=== PATIENT | female | born 1930 | race Caucasian/White ===

== ENCOUNTER 2016-09-03 13:54 | Observation (INO) | payer MEDICARE ==
[2016-09-03] VITALS (7 sets, daily range): BP systolic 142–195; BP diastolic 75–85; PULSE 60–71; RESP 16–18; TEMP 97.7–97.9; O2SAT 97–100
[~2016-09-03] VITALS: Ht 165.1 cm; Wt 47.1 kg
--- NOTE | 2016-09-03 14:25 | RADRPT ---
EXAM DATE/TIME: 09/03/2016 14:26 [facility] COMPARISON: No previous studies available for comparison. INDICATIONS : Fall, complains of pain and swelling of right wrist. MEDICAL HISTORY : None. SURGICAL HISTORY : None. ENCOUNTER: Initial ACUITY: 1 day PAIN SCORE: 6/10 LOCATION: Right wrist FINDINGS: Bony structures are extremely osteopenic with a fracture of distal radius and slight impaction of the metaphysis into the epiphysis. There is minimal displacement dorsally. 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 CONCLUSION: Distal radial fracture. Apurva Hoang MD on September 03, 2016 at 14:23 Board Certified Radiologist. This report was verified electronically.
--- NOTE | 2016-09-03 14:26 | RADRPT ---
EXAM DATE/TIME: 09/03/2016 14:26 [facility] COMPARISON: No previous studies available for comparison. INDICATIONS : Fall, complains of pain and swelling of left wrist. MEDICAL HISTORY : None. SURGICAL HISTORY : None. ENCOUNTER: Initial ACUITY: 1 day PAIN SCORE: 6/10 LOCATION: Left wrist FINDINGS: Bony structures are extremely osteopenic with a fracture of distal radius and slight dorsal displacem ent. 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 CONCLUSION: Distal radial fracture. Apurva Hoang MD on September 03, 2016 at 14:24 Board Certified Radiologist. This report was verified electronically.
[2016-09-03] MEDS ORDERED: MULT-69 PO (14:51)
--- NOTE | 2016-09-03 15:12 | PD ---
HPI Chief Complaint: Injury Time Seen by Provider: 15:06 Travel History International Travel<30 days: No Contact w/Intl Traveler<30days: No Traveled to known affect area: No History of Present Illness HPI Patient is an 86-year-old female presenting to emergency evaluation of bilateral wrist pain. Patient states she was outside watering her hanging plant when she saw [employer] and tried to hit it with a broom subsequently losing her balance and falling back onto her wrists and buttocks. She braced her fall with her hands. She denies any back pain, leg pain, neck pain, she did bump her head on her car door but she states it was a gentle bump. She denied any chest pain, dizziness prior to the fall. She has no significant past medical history or surgical history. She is only on vitamins daily. [facility] Past Medical History Medical History: Denies Significant Hx Diminished Hearing: No Tetanus Vaccination: > 5 Years Influenza Vaccination: No ?: Not Menopausal: Yes : 0 Past Surgical History Surgical History: No Previous Surgery Social History Alcohol Use: Yes (GLASS OF WINE ) Tobacco Use: No (QUIT ) Substance Use: No (PT DENIES ) Allergies-Medications (Allergen,Severity, Reaction): Coded Allergies: Sulfa (Verified Allergy, Intermediate, SWELLING, 09/03/16) Codeine (Verified Adverse Reaction, Unknown, HALLUCINATIONS , 09/03/16) Reported Meds & Prescriptions Reported Meds & Active Scripts Active Reported [facility] Women's Tab (Multivit-Min/Iron/Folic/Lutein) 1 Each Tablet 1 Tab PO DAILY Review of Systems Except as stated in HPI: all other systems reviewed are Neg Musculoskeletal: Positive: Myalgias, Limited ROM, Edema, Pain Skin: Positive Change in Pigmentation Physical Exam Narrative GENERAL: Well-developed, well-nourished, alert elderly female. Resting in no acute distress. SKIN: Warm and dry. HEAD: Atraumatic. Normocephalic. EYES: Pupils equal and round. No scleral icterus. No injection or drainage. ENT: No nasal bleeding or discharge. Mucous membranes pink and moist. NECK: Trachea midline. No JVD. CARDIOVASCULAR: Regular rate and rhythm. RESPIRATORY: No accessory muscle use. Clear to auscultation. Breath sounds equal bilaterally. GASTROINTESTINAL: Abdomen soft, non-tender, nondistended. Hepatic and splenic margins not palpable. MUSCULOSKELETAL: Right upper extremity from the mid forearm just distal to the wrist is edematous, ecchymosis noted. 2+ positive radial pulses bilaterally, brisk less than 3 second capillary refill. Left upper extremity has mild edema noted over the wrist. NEUROLOGICAL: Awake and alert. No obvious cranial nerve deficits. Motor grossly within normal limits. Five out of 5 muscle strength in the arms and legs. Normal speech. PSYCHIATRIC: Appropriate mood and affect; insight and judgment normal. Data Data Last Documented VS Vital Signs Date Time Temp Pulse Resp B/P Pulse Ox O2 Delivery O2 Flow Rate FiO2 09/03/16 15:30 97.8 67 16 153/81 99 Room Air Orders Wrist, Complete ([id number]) (09/03/16 ) Wrist, Complete ([id number]) (09/03/16 ) Complete Blood Count With Diff (09/03/16 14:55) Comprehensive Metabolic Panel (09/03/16 14:55) Prothrombin Time / Inr (Pt) (09/03/16 14:55) Act Partial Throm Time (Ptt) (09/03/16 14:55) Urinalysis - C+S If Indicated (09/03/16 14:55) Magnesium (Mg) (09/03/16 14:55) Iv Access Insert/Monitor (09/03/16 14:55) Ecg Monitoring (09/03/16 14:55) Oximetry (09/03/16 14:55) Vital Signs (09/03/16 14:55) Blood Glucose (09/03/16 14:55) Splinting (09/03/16 ) Splinting (09/03/16 ) Fiberglass Sugartong Sp Ad Arm (09/03/16 ) Fiberglass Sugartong Sp Ad Arm (09/03/16 ) Sling Cradle Arm (09/03/16 ) Sling Cradle Arm (09/03/16 ) Admit Order (Ed Use Only) (09/03/16 16:54) Labs Laboratory Tests Test 09/03/16 09/03/16 15:00 15:25 White Blood Count 10.3 TH/MM3 Red Blood Count 4.09 MIL/MM3 Hemoglobin 12.9 GM/DL Hematocrit 38.8 % Mean Corpuscular Volume 94.7 FL Mean Corpuscular Hemoglobin 31.4 PG Mean Corpuscular Hemoglobin 33.2 % Concent Red Cell Distribution Width 13.9 % Platelet Count 157 TH/MM3 Mean Platelet Volume 8.5 FL Neutrophils (%) (Auto) 61.8 % Lymphocytes (%) (Auto) 10.8 % Monocytes (%) (Auto) 3.4 % Eosinophils (%) (Auto) 23.7 % Basophils (%) (Auto) 0.3 % Neutrophils # (Auto) 6.4 TH/MM3 Lymphocytes # (Auto) 1.1 TH/MM3 Monocytes # (Auto) 0.3 TH/MM3 Eosinophils # (Auto) 2.4 TH/MM3 Basophils # (Auto) 0.0 TH/MM3 CBC Comment DIFF FINAL Differential Comment Prothrombin Time 13.0 SEC Prothromb Time International 1.2 RATIO Ratio Activated Partial 25.4 SEC Thromboplast Time Sodium Level 131 MEQ/L Potassium Level 4.4 MEQ/L Chloride Level 94 MEQ/L Carbon Dioxide Level 25.7 MEQ/L Anion Gap 11 MEQ/L Blood Urea Nitrogen 12 MG/DL Creatinine 0.91 MG/DL Estimat Glomerular Filtration 58 ML/MIN Rate Random Glucose 104 MG/DL Calcium Level 9.1 MG/DL Magnesium Level 1.9 MG/DL Total Bilirubin 0.9 MG/DL Aspartate Amino Transf 36 U/L (AST/SGOT) Alanine Aminotransferase 21 U/L (ALT/SGPT) Alkaline Phosphatase 84 U/L Total Protein 7.2 GM/DL Albumin 4.0 GM/DL [facility] Medical Decision Making Medical Screen Exam Complete: Yes Emergency Medical Condition: Yes Interpretation(s) Last Impressions Wrist X-Ray 09/03/16 0000 Signed Impressions: Service Date/Time: Saturday, September 03, 2016 14:26 - CONCLUSION: Distal radial fracture. Apurva Hoang MD Wrist X-Ray 09/03/16 0000 Signed Impressions: Service Date/Time: Saturday, September 03, 2016 14:26 - CONCLUSION: Distal radial fracture. Apurva Hoang MD Vital Signs Date Time Temp Pulse Resp B/P Pulse Ox O2 Delivery O2 Flow Rate FiO2 09/03/16 13:56 97.8 62 17 195/85 97 Room Air Differential Diagnosis Fracture versus dislocation versus sprain versus strain versus other Narrative Course Patient is a 86-year-old well-appearing female, she has no significant past medical history presenting with bilateral wrist pain after falling onto an outstretched hand. She is neurologically intact and vascularly intact. Imaging shows a left distal radius fracture with slight dorsal displacement. The right wrist x-ray shows a fracture of the distal radius and slight impaction of the metaphysis and epiphysis, there is minimal displacement dorsally. Superimposed osteoarthritis is pain on both wrists. IV access established, labs ordered. [employer] paged for splinting. Orthopedic surgeon paged for recommendations Dr. Sue reviewed images, stated to place in splints and follow up in office in 1-2 weeks. Pt placed in bilateral sugar tong splints and slings. Patient initially wanted to be discharged home, after she was splinted she realized that she was unable to care for herself. Patient then agreed to be admitted for placement in a rehabilitation facility. Discussed with case management, patient will be admitted under observation. Case management stated the patient did not need a [address] Forman accepted admission. Diagnosis Primary Impression: Distal radius fracture, left Qualified Code: S52.592A - Other closed fracture of distal end of left radius , initial encounter Additional Impressions: Distal radius fracture, right Qualified Code: S52.591A - Other closed fracture of distal end of right radius , initial encounter Alteration in self-care ability Admitting Information Admitting Physician Requests: Observation Condition: Stable Kaitlynn Cristobal Sep 03, 2016 15:12
[2016-09-03 15:52] LABS: AUTOMATED NEUTROPHIL # 6.4 TH/MM3 (1.8-7.7); BASOPHIL % 0.3 % (0.0-2.0); EOSINOPHIL # 2.4 TH/MM3 (0-0.4); EOSINOPHIL % 23.7 % (0.0-4.0); HEMATOCRIT 38.8 % (35.0-46.0); HEMO FLAGS DIFF FINAL; LYMPH % 10.8 % (9.0-44.0); LYMPHOCYTE # 1.1 TH/MM3 (1.0-4.8); MEAN CELL VOLUME 94.7 FL (80.0-100.0); MEAN CORPUSCULAR HEMOGLOBIN 31.4 PG (27.0-34.0); MEAN CORPUSCULAR HGB CONC 33.2 % (32.0-36.0); MONO % 3.4 % (0.0-8.0); NEUT % 61.8 % (16.0-70.0); PLATELET COUNT 157 TH/MM3 (150-450); RED BLOOD COUNT 4.09 MIL/MM3 (4.00-5.30); RED CELL DISTRIBUTION WIDTH 13.9 % (11.6-17.2); WHITE BLOOD COUNT 10.3 TH/MM3 (4.0-11.0)
[2016-09-03 16:03] LABS: APTT (PATIENT) 25.4 SEC (24.3-30.1); INTERNATIONAL NORMALIZED RATIO 1.2 RATIO
[2016-09-03 16:08] LABS: ALKALINE PHOSPHATASE 84 U/L (45-117); TOTAL BILIRUBIN ADULT 0.9 MG/DL (0.2-1.0)
[2016-09-03 16:13] LABS: ALT (GPT) 21 U/L (10-53); ANION GAP 11 MEQ/L (5-15); AST (GOT) 36 U/L (15-37); BICARBONATE 25.7 MEQ/L (21.0-32.0); BLOOD UREA NITROGEN 12 MG/DL (7-18); CHLORIDE 94 MEQ/L (98-107); GLOMERULAR FILTRATION RATE 58 ML/MIN (>89); MAGNESIUM 1.9 MG/DL (1.5-2.5); POTASSIUM 4.4 MEQ/L (3.5-5.1); SODIUM (NA) 131 MEQ/L (136-145)
[2016-09-03] MEDS ORDERED: LACTULOSE SYRUP 20 GM/30 ML CUP PO PRN (17:30)
[2016-09-03] MEDS ORDERED: ACETAMINOPHEN 325 MG TAB PO PRN (17:30)
[2016-09-03] MEDS ORDERED: ONDANSETRON HCL 4 MG/2 ML VIAL IVP PRN (17:30)
[2016-09-03] MEDS ORDERED: traMADol HCL 50 MG TAB PO PRN (17:30)
[2016-09-03] MEDS ORDERED: SENNOSIDES 8.6 MG TAB PO PRN (17:30)
[2016-09-03] MEDS ORDERED: MAGNESIUM HYDROXIDE SUSP 30 ML CUP PO PRN (17:30)
[2016-09-03] MEDS ORDERED: BISACODYL 10 MG SUPP RECTAL PRN (17:30)
--- NOTE | 2016-09-03 17:32 | HHI.HP ---
HPI Service [facility] Primary Care Physician No Primary Care Physician Admission Diagnosis BILATERAL WRIST FRACTURES Diagnoses: Chief Complaint: Wrist fractures Travel History International Travel<30 Days: No Contact w/Intl Traveler <30 Da: No Traveled to Known Affected Are: No History of Present Illness 86-year-old female with no significant past medical history who presented after a fall. The patient states that she was in the driveway today and tried to hit a gecko with a broom, lost her balance, and fell backwards onto her wrists. She landed on both of her wrists and had pain in both of them. She describes the pain as a warm sensation. Pain is reasonably controlled when she is not moving them, but does hurt worse with activity. When she fell, she denies any hitting her head or any other trauma. She was found to have bilateral radial fractures in the ED. Orthopedics was consulted and recommended to place in bilateral splints and follow-up as outpatient. With wrists in bilateral splints , the patient was asked to be admitted for placement issue will likely be unable to perform ADLs at home. Review of Systems Except as stated in HPI: all other systems reviewed are Neg Past Family Social History Past Medical History None Past Surgical History None Reported Medications Reported [facility] Women's Tab (Multivit-Min/Iron/Folic/Lutein) 1 Each Tablet 1 Tab PO DAILY Allergies: Coded Allergies: Sulfa (Verified Allergy, Intermediate, SWELLING, 09/03/16) Codeine (Verified Adverse Reaction, Unknown, HALLUCINATIONS , 09/03/16) Active Ordered Medications Current Medications Medications (Trade) Dose Ordered Sig/Xu Route Start Time Stop Time Status Last Admin (NS Flush) 2 ml BID IV FLUSH 09/03/16 21:00 UNV Family History Mother had CVA Social History Has a glass of wine rarely Denies any tobacco use Lives at home by herself and does not use any assistive devices for ambulation Physical Exam Vital Signs Vital Signs Date Time Temp Pulse Resp B/P Pulse Ox O2 Delivery O2 Flow Rate FiO2 09/03/16 15:30 97.8 67 16 153/81 99 Room Air 09/03/16 15:14 97.8 69 16 153/81 100 Room Air 09/03/16 15:14 16 100 Room Air 09/03/16 14:55 69 16 100 Room Air 09/03/16 13:56 97.8 62 17 195/85 97 Room Air Physical Exam GENERAL: Well-developed well-nourished. In no acute distress. SKIN: Warm and dry. No lesions noted. HEENT: Normocephalic. Pupils equal and round. Mucous membranes pink and moist. CARDIOVASCULAR: Regular rate and rhythm. No murmur appreciated. RESPIRATORY: No accessory muscle use. Clear to auscultation. Breath sounds equal bilaterally. GASTROINTESTINAL: Abdomen soft, non-tender, nondistended. Bowel sounds x4. MUSCULOSKELETAL: Bilateral forearms in splints. Good capillary refill and range of motion of the fingers in both of her hands. No clubbing or cyanosis. No edema. NEUROLOGICAL: Awake and alert. No focal neurological deficits. Moves upper and lower extremities spontaneously. Normal speech. PSYCHIATRIC: Appropriate mood and affect; insight and judgment normal. Laboratory Laboratory Tests Test 09/03/16 09/03/16 15:00 15:25 White Blood Count 10.3 Red Blood Count 4.09 Hemoglobin 12.9 Hematocrit 38.8 Mean Corpuscular Volume 94.7 Mean Corpuscular Hemoglobin 31.4 Mean Corpuscular Hemoglobin 33.2 Concent Red Cell Distribution Width 13.9 Platelet Count 157 Mean Platelet Volume 8.5 Neutrophils (%) (Auto) 61.8 Lymphocytes (%) (Auto) 10.8 Monocytes (%) (Auto) 3.4 Eosinophils (%) (Auto) 23.7 Basophils (%) (Auto) 0.3 Neutrophils # (Auto) 6.4 Lymphocytes # (Auto) 1.1 Monocytes # (Auto) 0.3 Eosinophils # (Auto) 2.4 Basophils # (Auto) 0.0 CBC Comment DIFF FINAL Differential Comment Prothrombin Time 13.0 Prothromb Time International 1.2 Ratio Activated Partial 25.4 Thromboplast Time Sodium Level 131 Potassium Level 4.4 Chloride Level 94 Carbon Dioxide Level 25.7 Anion Gap 11 Blood Urea Nitrogen 12 Creatinine 0.91 Estimat Glomerular Filtration 58 Rate Random Glucose 104 Calcium Level 9.1 Magnesium Level 1.9 Total Bilirubin 0.9 Aspartate Amino Transf 36 (AST/SGOT) Alanine Aminotransferase 21 (ALT/SGPT) Alkaline Phosphatase 84 Total Protein 7.2 Albumin 4.0 Result Diagram: 09/03/16 1500 09/03/16 1525 Imaging Last Impressions Wrist X-Ray 09/03/16 0000 Signed Impressions: Service Date/Time: Saturday, September 03, 2016 14:26 - CONCLUSION: Distal radial fracture. Apurva Hoang MD Assessment and Plan Assessment and Plan 86-year-old female with no significant past medical history who presented after a fall Bilateral radial fractures: Images personally reviewed. Orthopedics was contacted in the ED and recommended conservative management with splinting and outpatient follow-up with them for repeat imaging. Pain control with Tylenol and tramadol. Impaired activities of daily living: With both arms in sugar tong splints, the patient no longer has the ability to bend at her elbows. This is concerning as the patient will likely not be able to feed herself or maintain personal hygiene. Given this and her advanced age, will likely need placement while fractures case management consulted. PT/OT consultation. Supportive care. DVT prophylaxis: SCDs Discussed Condition With Patient with friend at bedside, ED SENIOR DESIGN ENGINEER Attending Statement Attestation Patient seen and examined with Bismark Lovell PA-C. The exam, history, and the medical decision-making described in the above note were completed with the assistance of the dictating practitioner. I attest that I had a [id number] encounter with the patient on the same day, and personally performed all of the history, exam, or medical decision making. Discussed case with him thoroughly after seeing the patient, reviewed and agreed with the plan. Please see addendum in History, Physical examination and Plan. See below for any errata/ additional input: This is an 86-year-old female with no significant past medical history presented with a fall, was found after evaluation to have had bilateral radial fractures. Pain is mild, only with movement, described as tingling. Patient did not hit her head. Not in distress Regular rate and rhythm Clear breath sounds Bilateral forearm in splints Alert awake and oriented, no focal deficits. Bilateral radial fracture-per orthopedics, neurosurgery, keep bilateral splint. Positive impaired activities of daily living, will need 24-hour hour supervision, if cannot be done at home, patient would need rehabilitation. Pain control with Tylenol and tramadol. Consult PT and case management. Bismark Lovell Sep 03, 2016 17:32 Vadim Forman MD Sep 03, 2016 18:20
[2016-09-03] MEDS: DOCUSATE SODIUM 50 MG/SENNA 8.6 MG TAB PO SCH (20:22)
[2016-09-03] MEDS: ENOXAPARIN SODIUM 40 MG/0.4 ML SYRINGE SQ SCH (20:22)
[2016-09-03] MEDS: SODIUM CHLORIDE 0.9% FLUSH 10 ML FLUSH IV FLUSH SCH (20:54)
[2016-09-03 23:04] LABS: BLOOD, URINE NEG (NEG); COMMENT (UR) CULT NOT INDICATED; CULTURE IF INDICATED CULT NOT INDICATED; GLUCOSE,URINE NEG (NEG); KETONE, URINE NEG (NEG); NITRITE,URINE NEG (NEG); URINE COLOR YELLOW (YELLW/STRAW)
[2016-09-03] MEDS: ACETAMINOPHEN 325 MG TAB PO PRN (23:38)
[2016-09-04] VITALS (7 sets, daily range): BP systolic 151–192; BP diastolic 66–87; PULSE 52–63; RESP 17–18; TEMP 95.9–97.8; O2SAT 96–98
[2016-09-04] MEDS: MULTIVITAMIN TAB PO SCH (09:00)
[2016-09-04] MEDS: DOCUSATE SODIUM 50 MG/SENNA 8.6 MG TAB PO SCH ×2 (09:00→19:58)
[2016-09-04] MEDS: SODIUM CHLORIDE 0.9% FLUSH 10 ML FLUSH IV FLUSH SCH ×2 (09:00→19:58)
[2016-09-04] MEDS ORDERED: SENN1TAB PO (09:41)
[2016-09-04] MEDS ORDERED: ACET1TAB86 PO (09:41)
[2016-09-04] MEDS ORDERED: ULTR50TA5 PO (09:41)
--- NOTE | 2016-09-04 13:36 | HHI.PR ---
Subjective Remarks Follow-up for bilateral radial fracture No overnight events, no headache. Pain is controlled with Tylenol. No nausea or vomiting. Agreed to go to rehabilitation since she cannot arrange for 13/09 care at home Objective Vitals Vital Signs Date Time Temp Pulse Resp B/P Pulse Ox O2 Delivery O2 Flow Rate FiO2 09/04/16 08:00 96.0 58 17 166/79 98 09/04/16 04:00 97.8 54 17 160/66 96 09/03/16 22:35 97.7 60 16 164/75 97 09/03/16 19:44 98 09/03/16 19:19 64 18 142/76 98 Room Air 09/03/16 17:32 97.9 71 16 148/82 99 Room Air 09/03/16 15:30 97.8 67 16 153/81 99 Room Air 09/03/16 15:14 97.8 69 16 153/81 100 Room Air 09/03/16 15:14 16 100 Room Air 09/03/16 14:55 69 16 100 Room Air 09/03/16 13:56 97.8 62 17 195/85 97 Room Air I/O 09/03/16 09/03/16 09/03/16 09/04/16 09/04/16 09/04/16 06:59 14:59 22:59 06:59 14:59 22:59 Intake Total 200 ml 240 ml Balance 200 ml 240 ml Intake Oral 200 ml 240 ml # Voids 2 # Bowel Movements 0 Result Diagram: 09/03/16 1500 09/03/16 1525 Objective Remarks Not in distress Regular rate and rhythm Clear breath sounds Bilateral forearm in splints Alert awake and oriented, no focal deficits. A/P Problem List: (1) Distal radius fracture, right ICD Code: S52.501A Status: Acute (2) Distal radius fracture, left ICD Code: S52.502A Status: Acute Assessment and Plan 86-year-old female with no significant past medical history who presented after a fall Bilateral radial fractures: Images personally reviewed. Orthopedics was contacted in the ED and recommended conservative management with splinting and outpatient follow-up with them for repeat imaging. Pain control with Tylenol and tramadol. Impaired activities of daily living: With both arms in sugar tong splints, the patient no longer has the ability to bend at her elbows. This is concerning as the patient will likely not be able to feed herself or maintain personal hygiene. Given this and her advanced age, she agreed to go to rehabilitation. Physical therapy following, consult case management for SNF placement. Upon discharge, she needs a primary care physician, my recommendation is Dr. [place] Discharge Planning Discharge once arrangements made. Problem Qualifiers (1) Distal radius fracture, right: Qualified Code: S52.591A - Other closed fracture of distal end of right radius , initial encounter (2) Distal radius fracture, left: Qualified Code: S52.592A - Other closed fracture of distal end of left radius, initial encounter Vadim Forman MD Sep 04, 2016 13:36
[2016-09-04] MEDS: ACETAMINOPHEN 325 MG TAB PO PRN (17:32)
[2016-09-04] MEDS ORDERED: ENALAPRILAT 1.25 MG/ML VIAL IV PRN (19:30)
[2016-09-04] MEDS ORDERED: amLODIPine BESYLATE 5 MG TAB PO ONE (19:30)
[2016-09-04] MEDS: ENOXAPARIN SODIUM 40 MG/0.4 ML SYRINGE SQ SCH (19:57)
[2016-09-05] VITALS (7 sets, daily range): BP systolic 121–189; BP diastolic 66–90; PULSE 50–86; RESP 16–18; TEMP 95.6–98.6; O2SAT 92–99
[2016-09-05] MEDS: amLODIPine BESYLATE 5 MG TAB PO SCH (08:47)
[2016-09-05] MEDS: MULTIVITAMIN TAB PO SCH (08:47)
[2016-09-05] MEDS: DOCUSATE SODIUM 50 MG/SENNA 8.6 MG TAB PO SCH ×2 (08:50→20:58)
[2016-09-05] MEDS: SODIUM CHLORIDE 0.9% FLUSH 10 ML FLUSH IV FLUSH SCH ×2 (08:50→20:57)
--- NOTE | 2016-09-05 10:03 | HHI.PR ---
Subjective Remarks Follow-up on patient with bilateral radial wrist fractures. Patient seen and examined today. Patient reports disorientation and confusion last night after taking Tramadol. Resolved. Patient denies any complaints at present. She denies any bilateral wrist pain just some mild discomfort. Reports intact sensation in all of the digits of both hands. She is considering several rehabilitation facilities depending on insurance average. She denies any acute medical complaints. No dizziness or headache. No chest pain, shortness of breath or abdominal pain. Objective Vitals Vital Signs Date Time Temp Pulse Resp B/P Pulse Ox O2 Delivery O2 Flow Rate FiO2 09/05/16 05:37 149/78 09/05/16 04:00 95.6 61 16 178/83 97 09/05/16 01:16 Room Air 09/05/16 01:00 18 09/05/16 00:00 95.6 64 18 189/79 97 09/04/16 21:00 151/73 09/04/16 20:32 21 09/04/16 20:00 97.2 63 18 180/87 97 09/04/16 18:00 182/82 09/04/16 16:00 96.5 57 18 192/81 98 09/04/16 12:00 95.9 52 18 170/72 96 I/O 09/04/16 09/04/16 09/04/16 09/05/16 09/05/16 09/05/16 07:00 15:00 23:00 07:00 15:00 23:00 Intake Total 240 ml 840 ml 120 ml Balance 240 ml 840 ml 120 ml Intake Oral 240 ml 840 ml 120 ml # Voids 2 4 3 # Bowel Movements 1 0 Result Diagram: 09/03/16 1500 09/03/16 1525 Imaging Last Impressions Wrist X-Ray 09/03/16 0000 Signed Impressions: Service Date/Time: Saturday, September 03, 2016 14:26 - CONCLUSION: Distal radial fracture. Apurva Hoang MD Objective Remarks GENERAL: Well-nourished, well-developed elderly patient in NAD. A*Ox3. Pleasant and talkative. SKIN: Warm and dry. No rash. HEENT: Normocephalic. Atraumatic. EOMI. MMM. CARDIOVASCULAR: Regular rate and rhythm. S1, S2 noted. No murmur appreciated. RESPIRATORY: No accessory muscle use. Clear to auscultation. Breath sounds equal bilaterally. GASTROINTESTINAL: Abdomen soft, non-tender, nondistended. Normoactive bowel sounds x4. MUSCULOSKELETAL: Bilateral forearms in splints. Able to move all digits of both hands. Sensation grossly intact. (+)Ecchymosis and edema noted in the fingers of the right hand. PSYCHIATRIC: Appropriate mood and affect; insight and judgment normal. Medications and IVs Current Medications Medications (Trade) Dose Ordered Sig/Xu Route Start Time Stop Time Status Last Admin (NS Flush) 2 ml BID IV FLUSH 09/03/16 21:00 09/05/16 08:50 (Theragran) 1 tab DAILY PO 09/04/16 09:00 09/05/16 08:47 (Tylenol) 650 mg Q4H PRN PO 09/03/16 17:30 (Zofran Inj) 4 mg Q6H PRN IVP 09/03/16 17:30 (Lovenox Inj) 40 mg Q24H SQ 09/03/16 20:00 09/04/16 19:57 (Tylenol) 650 mg Q6H PRN PO 09/03/16 17:30 09/04/16 17:32 (Brinda-Colace) 1 tab BID PO 09/03/16 21:00 09/03/16 20:22 (Milk Of Magnesia Liq) 30 ml Q12H PRN PO 09/03/16 17:30 (Senokot) 17.2 mg Q12H PRN PO 09/03/16 17:30 (Dulcolax Supp) 10 mg DAILY PRN RECTAL 09/03/16 17:30 (Lactulose Liq) 30 ml DAILY PRN PO 09/03/16 17:30 (Ultram) 50 mg Q8H PRN PO 09/03/16 17:30 09/04/16 23:59 (Norvasc) 5 mg DAILY PO 09/05/16 09:00 09/05/16 08:47 (Vasotec Inj) 1.25 mg Q6H PRN IV 09/04/16 19:30 A/P Problem List: (1) Distal radius fracture, right ICD Code: S52.501A Status: Acute (2) Distal radius fracture, left ICD Code: S52.502A Status: Acute Assessment and Plan 86-year-old female with no significant past medical history who presented after a fall sustaining bilateral radial fractures. 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 Episode of disorientation and confusion last night (likely ) possibly attributable to tramadol use. Discontinue Tramadol. Continue pain control with Tylenol. Obtain Vitamin D level Patient will need to follow up as outpatient for DEXA scan Impaired activities of daily living With both arms in sugar tong splints, the patient no longer has the ability to bend at her elbows. This is concerning as the patient will likely not be able to feed herself or maintain personal hygiene. Given this and her advanced age, she agreed to go to rehabilitation. She is no one at home to help care for her. Case management consulted - attempting to obtain insurance authorization for SNF placement Continue participation with physical therapy Elevated BP Patient denies any history of hypertension Likely situational Started on Norvasc 5 mg daily Continue to monitor BP and adjust treatment as indicated Hyponatremia mild repeat lab studies to monitor trend DVT prophylaxis Patient is on Lovenox 40 mg daily Upon discharge, she needs a primary care physician, recommendation to follow up with Dr. Cade since she lives in [place]. Discussed with patient and Dr. Forman Discharge Planning Plan for discharge to SNF after obtaining insurance approval Problem Qualifiers (1) Distal radius fracture, right: Qualified Code: S52.591A - Other closed fracture of distal end of right radius , initial encounter (2) Distal radius fracture, left: Qualified Code: S52.592A - Other closed fracture of distal end of left radius, initial encounter Meenakshi Villavicencio Sep 05, 2016 10:03
[2016-09-05] MEDS ORDERED: IBUPROFEN 600 MG TAB PO PRN (12:45)
[2016-09-05] MEDS: ENOXAPARIN SODIUM 40 MG/0.4 ML SYRINGE SQ SCH (20:57)
[2016-09-05] MEDS: ACETAMINOPHEN 325 MG TAB PO PRN (21:01)
[2016-09-06] VITALS: BP 181/76; PULSE 62; RESP 18; TEMP 96; O2SAT 96
[2016-09-06 04:00] VITALS: BP 123/55; PULSE 53; RESP 18; TEMP 96.6; O2SAT 98
[2016-09-06 07:31] LABS: POTASSIUM 3.6 MEQ/L (3.5-5.1)
[2016-09-06 08:00] VITALS: BP 169/60; PULSE 56; RESP 16; TEMP 96; O2SAT 98
[2016-09-06] MEDS: DOCUSATE SODIUM 50 MG/SENNA 8.6 MG TAB PO SCH ×2 (09:00→20:51)
--- NOTE | 2016-09-06 10:33 | HHI.PR ---
Subjective Remarks Follow-up for bilateral wrist fracture Patient has no complaints. She stated the pain is controlled. She stated that since that her splint off she is able to move her arms more. Her friend is at the bedside. d/w OT at bedside. Objective Vitals Vital Signs Date Time Temp Pulse Resp B/P Pulse Ox O2 Delivery O2 Flow Rate FiO2 09/06/16 08:00 96.0 56 16 169/60 98 09/06/16 04:00 96.6 53 18 123/55 98 09/06/16 02:15 Room Air 09/06/16 00:00 96.0 62 18 181/76 96 09/05/16 22:14 18 09/05/16 20:00 97.5 59 18 172/80 99 09/05/16 16:00 97.0 86 16 121/90 94 09/05/16 12:00 97.0 68 16 137/66 92 I/O 09/05/16 09/05/16 09/05/16 09/06/16 09/06/16 09/06/16 07:00 15:00 23:00 07:00 15:00 23:00 Intake Total 120 ml 480 ml 240 ml 480 ml Balance 120 ml 480 ml 240 ml 480 ml Intake Oral 120 ml 480 ml 240 ml 480 ml # Voids 3 5 2 3 # Bowel Movements 0 1 0 0 Result Diagram: 09/03/16 1500 09/06/16 0648 Objective Remarks GENERAL: in NAD CARDIOVASCULAR: Regular rate and rhythm without murmurs, gallops, or rubs. RESPIRATORY: Breath sounds equal bilaterally. No accessory muscle use. GASTROINTESTINAL: Abdomen soft, non-tender, nondistended. MUSCULOSKELETAL: B/L wrist in soft splint. right with ecchymosis. sensation grossly intact and full ROM of B/L fingers. Medications and IVs Current Medications Sodium Chloride (NS Flush) 2 ml BID IV FLUSH Last administered on 09/05/16 20: 57; Start 09/03/16 at 21:00 Multivitamins (Theragran) 1 tab DAILY PO Last administered on 09/05/16 08:47; Start 09/04/16 at 09:00 Acetaminophen (Tylenol) 650 mg Q4H PRN PO TEMP > 100.4; Start 09/03/16 at 17:30 Ondansetron HCl (Zofran Inj) 4 mg Q6H PRN IVP NAUSEA OR VOMITING; Start at 17:30 Enoxaparin Sodium (Lovenox Inj) 40 mg Q24H SQ Last administered on 09/05/16 20 :57; Start 09/03/16 at 20:00 Acetaminophen (Tylenol) 650 mg Q6H PRN PO PAIN SCALE 1 TO 5 Last administered on 09/05/16 21:01; Start 09/03/16 at 17:30 Senna/Docusate Sodium (Brinda-Colace) 1 tab BID PO Last administered on 20:22; Start 09/03/16 at 21:00 Magnesium Hydroxide (Milk Of Magnesia Liq) 30 ml Q12H PRN PO MILD - MODERATE CONSTIPATION; Start 09/03/16 at 17:30 Sennosides (Senokot) 17.2 mg Q12H PRN PO MODERATE - SEVERE CONSTIPATION; Start 09/03/16 at 17:30 Bisacodyl (Dulcolax Supp) 10 mg DAILY PRN RECTAL SEVERE CONSITIPATION; Start at 17:30 Lactulose (Lactulose Liq) 30 ml DAILY PRN PO SEVERE CONSITIPATION; Start at 17:30 Tramadol HCl (Ultram) 50 mg Q8H PRN PO pain 3-10 Last administered on 23:59; Start 09/03/16 at 17:30; Stop 09/05/16 at 12:38; Status DC Amlodipine Besylate (Norvasc) 5 mg NOW ONCE PO Last administered on 09/04/16 19:57; Start 09/04/16 at 19:30; Stop 09/04/16 at 19:31; Status DC Amlodipine Besylate (Norvasc) 5 mg DAILY PO Last administered on 09/05/16 08: 47; Start 09/05/16 at 09:00 Enalaprilat (Vasotec Inj) 1.25 mg Q6H PRN IV SEE LABEL COMMENTS Last administered on 09/05/16 23:31; Start 09/04/16 at 19:30 Ibuprofen (Motrin) 600 mg Q6H PRN PO pain 6-10; Start 09/05/16 at 12:45 A/P Problem List: (1) Distal radius fracture, right ICD Code: S52.501A Status: Acute (2) Distal radius fracture, left ICD Code: S52.502A Status: Acute Assessment and Plan 86-year-old female with no significant past medical history who presented after a fall sustaining bilateral radial fractures. 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 Episode of disorientation and confusion last night (likely ) possibly attributable to tramadol use. Discontinue Tramadol. Continue pain control with Tylenol. Obtain Vitamin D level mildly decreased. Will add vitamin D supplement. Patient will need to follow up as outpatient for DEXA scan Impaired activities of daily living Soft splint was placed today. Patient stated that she is able to move her hands better. Does not qualify for SNF placement. d/w OT to work on ADLs so that patient feels comfortable with discharge. Elevated BP Patient denies any history of hypertension Likely situational Blood pressures labile. Patient was started on Norvasc. Continue Norvasc. Need to follow-up as outpatient. Hyponatremia mild Asymptomatic stable. DVT prophylaxis Patient is on Lovenox 40 mg daily Upon discharge, she needs a primary care physician, recommendation to follow up with Dr. Cade since she lives in [place]. Discussed with patient and Dr. Forman Discharge Planning d/ with case management patient does not qualify for any SNF placement. d/w OT to work on ADLs so that patient feels comfortable with discharge with home health. Problem Qualifiers (1) Distal radius fracture, right: Qualified Code: S52.591A - Other closed fracture of distal end of right radius , initial encounter (2) Distal radius fracture, left: Qualified Code: S52.592A - Other closed fracture of distal end of left radius, initial encounter Blanca Pastor MD Sep 06, 2016 10:33
[2016-09-06] MEDS: SODIUM CHLORIDE 0.9% FLUSH 10 ML FLUSH IV FLUSH SCH ×2 (11:05→20:51)
[2016-09-06] MEDS: MULTIVITAMIN TAB PO SCH (11:05)
[2016-09-06] MEDS: amLODIPine BESYLATE 5 MG TAB PO SCH (11:05)
[2016-09-06 12:00] VITALS: BP 138/61; PULSE 57; RESP 16; TEMP 95.8; O2SAT 99
[2016-09-06] MEDS: CHOLECALCIFEROL (VIT D3) 1000 UNIT TAB PO SCH (12:29)
--- NOTE | 2016-09-06 14:15 | HHI.FF ---
Face to Face Verification Diagnosis: (1) Distal radius fracture, right (2) Distal radius fracture, left (3) Alteration in self-care ability Physical Therapy Order: Evaluate and Treat, Improve ambulation, Strength and gait training Occupational Therapy Order: Evaluate and Treat, Improve ADL, Gross motor coordination, Fine motor coordination Home Health Nursing Order: Medical education Signs/symptoms of disease process Medication education-adverse effect I have seen patient Cary Caraballo on 09/06/16. My clinical findings support the need for the requested home health care services because: Deconditioned w/ increased weakness Limited ability to care for self I certify that my clinical findings support that this patient is homebound because: Unsafe to leave home unassisted Blanca Pastor MD Sep 06, 2016 14:15
[2016-09-06 16:00] VITALS: BP 124/70; PULSE 73; RESP 16; TEMP 98.2; O2SAT 97
[2016-09-06 20:00] VITALS: BP 140/82; PULSE 74; RESP 16; TEMP 98.6; O2SAT 97
[2016-09-06] MEDS: ENOXAPARIN SODIUM 40 MG/0.4 ML SYRINGE SQ SCH (20:51)
[2016-09-07] VITALS: BP 147/68; PULSE 49; RESP 17; TEMP 96.6; O2SAT 96
[2016-09-07 08:00] VITALS: BP 162/56; PULSE 58; RESP 20; TEMP 97.3; O2SAT 95
[2016-09-07] MEDS: DOCUSATE SODIUM 50 MG/SENNA 8.6 MG TAB PO SCH (09:00)
--- NOTE | 2016-09-07 09:38 | HHI.DS ---
Discharge Summary Admission Date Sep 03, 2016 at 16:56 Discharge Date: Sep 07, 2016 Admitting Diagnosis BILATERAL WRIST FRACTURES (1) Distal radius fracture, right ICD Code: S52.501A (2) Distal radius fracture, left ICD Code: S52.502A Procedures None Brief History - From Admission 86-year-old female with no significant past medical history who presented after a fall. The patient states that she was in the driveway today and tried to hit a gecko with a broom, lost her balance, and fell backwards onto her wrists. She landed on both of her wrists and had pain in both of them. She describes the pain as a warm sensation. Pain is reasonably controlled when she is not moving them, but does hurt worse with activity. When she fell, she denies any hitting her head or any other trauma. She was found to have bilateral radial fractures in the ED. Orthopedics was consulted and recommended to place in bilateral splints and follow-up as outpatient. With wrists in bilateral splints , the patient was asked to be admitted for placement issue will likely be unable to perform ADLs at home. CBC/BMP: 09/03/16 1500 09/06/16 0648 Significant Findings Laboratory Tests Test 09/06/16 06:48 Sodium Level 130 MEQ/L (136-145) Chloride Level 96 MEQ/L (98-107) 25-Hydroxy Vitamin D Total 28.8 ng/ML (30-100) Imaging Last Impressions Wrist X-Ray 09/03/16 0000 Signed Impressions: Service Date/Time: Saturday, September 03, 2016 14:26 - CONCLUSION: Distal radial fracture. Apurva Hoang MD PE at Discharge GENERAL: in NAD. Awake and alert. Sitting up in bedside chair eating breakfast. HEENT: NC/AT, EOMI, MMM. CARDIOVASCULAR: Regular rate and rhythm without murmurs, gallops, or rubs. RESPIRATORY: Breath sounds equal bilaterally. No accessory muscle use. GASTROINTESTINAL: Abdomen soft, non-tender, nondistended. MUSCULOSKELETAL: B/L wrist in soft splint. right with ecchymosis. sensation grossly intact and full ROM of B/L fingers. Pt update on day of discharge Patient doing well. No events overnight. She is anticipating her discharge to home. She has been toileting and feeding herself. No new issues. Hospital Course Admitted with bilateral distal radial fractures. Orthopedics was contacted in the ED and recommended conservative management with splinting and outpatient follow-up with them for repeat imaging. Patient placed in sugar tong splints. Pain control with Tylenol and tramadol. PT and OT consulted and patient began participation. She progressed well. Patient started on Norvasc for elevated BP. Also with mild hyponatremia with sodium of 130. Patient to follow up with PCP at time of discharge. Started on Vitamin D supplementation for mildly low vitamin D level of Patient remained afebrile and neurovascularly intact throughout her hospitalization. Patients splints exchanged for bilateral removable soft wrist splints. She did not qualify for SNF. Case management assisted with [facility] aide and continuation of PT/OT at home. Patient able to toilet and feed herself prior to discharge. Patient discharged to home with [facility]. Pt Condition on Discharge: Good Discharge Disposition: Disch w/ Home Health Serv Discharge Time: > 30 minutes Discharge Instructions DIET: Follow Instructions for: Heart Healthy Diet Activities you can perform: Regular-No Restrictions Follow up Referrals: PCP Follow-up - 1 Week with Michelle Cade MD New Medications: Acetaminophen (Eq Acetaminophen) 325 Mg Tab 650 MG PO Q6H PRN PAIN SCALE 1 TO 2 #100 TAB Amlodipine (Norvasc) 5 Mg Tab 5 MG PO DAILY Blood Pressure Management #30 TAB Cholecalciferol (D 1000) 1,000 Unit Tab 1000 UNITS PO DAILY Vitamin D Deficiency #30 TAB Sennosides-Docusate Sodium (Senna Plus 8.6-50 mg) 1 Tab Tab 1 TAB PO BID constipation #60 TAB Tramadol (Ultram) 50 Mg Tab 50 MG PO Q8H PRN severe pain #10 TAB Continued Medications: Multivit-Min/Iron/Folic/Lutein ([employer] Women's Tab) 1 Each Tablet 1 TAB PO DAILY Additional Information The exam, history, and the medical decision-making described in the above note were completed with the assistance of the mid-level provider. I reviewed and agree with the findings presented. I attest that I had a [id number] encounter with the patient on the same day, and personally performed and documented my assessment and findings in the medical record. Patient was admitted due to bilateral wrist fracture. Orthopedics was consulted and recommended medical management. She initially was put in hard splint, but then transitioned to soft splint. Occupational therapist work with patient in which patient was be able to discharge with home health. She also had problems the blood pressure in which she was put on blood pressure medication. She did well with the blood pressure medication but at times her blood pressure was labile. Extensive discussion was discussed with patient regards to establishing with the PCP in which case management was consulted to help assist with this. gen NAD CV RRR. no r/m/g Ext; bilateral wrist was placed in soft wrist splint. Sensation and full range of motion fingers was intact. Meenakshi Villavicencio Sep 07, 2016 09:38 Blanca Pastor MD Sep 07, 2016 13:20
[2016-09-07] MEDS ORDERED: AMLO5 PO (09:39)
[2016-09-07] MEDS ORDERED: VITA1000 PO (09:39)
[2016-09-07] MEDS: CHOLECALCIFEROL (VIT D3) 1000 UNIT TAB PO SCH (10:42)
[2016-09-07] MEDS: amLODIPine BESYLATE 5 MG TAB PO SCH (10:42)
[2016-09-07] MEDS: MULTIVITAMIN TAB PO SCH (10:42)
[2016-09-07] MEDS: SODIUM CHLORIDE 0.9% FLUSH 10 ML FLUSH IV FLUSH SCH (10:42)
[2016-09-07] MEDS: ACETAMINOPHEN 325 MG TAB PO PRN (10:46)
--- NOTE | 2016-09-07 11:03 | HHI.DCPOC ---
Discharge Care Plan Diagnosis: (1) Hyponatremia (2) Hypertension (3) Vitamin D deficiency (4) Alteration in self-care ability (5) Distal radius fracture, left (6) Distal radius fracture, right Goals to Promote Your Health * To prevent worsening of your condition and complications * To maintain your health at the optimal level Directions to Meet Your Goals Take your medications as prescribed Follow your dietary instruction Follow activity as directed Keep your appointments as scheduled Take your immunizations and boosters as scheduled If your symptoms worsen call your PCP, if no PCP go to Urgent Care Center or Emergency Room Smoking is Dangerous to Your Health. Avoid second hand smoke Call the 24-hour hour crisis hotline for domestic abuse at Meenakshi Villavicencio Sep 07, 2016 11:03
[2016-09-07 12:00] VITALS: BP 156/77; PULSE 58; RESP 20; TEMP 97; O2SAT 99
== END 2016-09-07 13:57 | disposition home health service (06) ==
LOC: NEPD 13:54 → NEDA 16:56 → N06A 22:07
PROVIDERS: ADMIT Family Medicine; ATTEND Family Medicine
DX: S52.501A Unspecified fracture of the lower end of right radius, initial encounter for closed fracture (principal); S52.502A Unspecified fracture of the lower end of left radius, initial encounter for closed fracture; Y92.009 Unspecified place in unspecified non-institutional (private) residence as the place of occurrence of the external cause; I10 Essential (primary) hypertension; E87.1 Hypo-osmolality and hyponatremia; E55.9 Vitamin D deficiency, unspecified; W18.39XA Other fall on same level, initial encounter
CPT/HCPCS: 29125; 73110; 80048; 80053; 81001; 82306; 83735; 85025; 85610; 85730; 97110; 97116; 97162; 97166; 97535; 99285; G0378; G8987; G8988; J1650; L3908